=== PATIENT | female | born 1950 | race Caucasian/White ===

== ENCOUNTER 2016-11-10 15:43 | Observation (INO) | payer MEDICARE, OTHER ==
[2016-11-10] VITALS (8 sets, daily range): BP systolic 99–122; BP diastolic 62–75; PULSE 74–86; RESP 16–20; TEMP 97.9; O2SAT 96–99
[2016-11-10] MEDS ORDERED: FENO50TA PO (15:56)
[2016-11-10] MEDS ORDERED: SIMV40TA PO (15:56)
[2016-11-10] MEDS ORDERED: METO50TA PO (15:57)
--- NOTE | 2016-11-10 16:01 | PD ---
HPI Chief Complaint: Injury Time Seen by Provider: 15:52 Travel History International Travel<30 days: No Contact w/Intl Traveler<30days: No Traveled to known affect area: No History of Present Illness HPI 66-year-old female that presents to the ED for evaluation of injury. Patient came here by ambulance. Per patient she had tripped and fallen will cleaning her house. Per patient she fell into her left hand. She denies any head injury or loss of consciousness. Patient has obvious deformity at the left wrist. Patient was able to ambulate per ambulance. She states that her pain is 6 out of 10. She was put in a splint. She denies any fevers chills or sweats. Denies any other medical issues at this time. No blood thinner use. No back or neck pain. No hip pain. Able to move the fingers fully. Full range of motion. Patient does have obvious deformity to the wrist. No pain on the elbow. No pain anywhere else. No previous injuries to this area. PFSH Past Medical History High Cholesterol: Yes Hypertension: Yes Influenza Vaccination: Yes ?: Not Past Surgical History Other Surgery: Yes (SKIN CANCER) Social History Alcohol Use: Yes (WEEKENDS) Tobacco Use: Yes (1/2 PPD) Substance Use: No Allergies-Medications (Allergen,Severity, Reaction): Coded Allergies: No Known Allergies (Verified , 11/10/16) Reported Meds & Prescriptions Reported Meds & Active Scripts Active Reported Metoprolol Tartrate 50 Mg Tab 50 Mg PO DAILY Simvastatin 40 Mg Tab 40 Mg PO HS Tricor (Fenofibrate) 145 Mg Tab 145 Mg PO DAILY Takw with food. Review of Systems Except as stated in HPI: all other systems reviewed are Neg Physical Exam Narrative GENERAL: SKIN: Warm and dry. HEAD: Atraumatic. Normocephalic. EYES: Pupils equal and round. No scleral icterus. No injection or drainage. ENT: No nasal bleeding or discharge. Mucous membranes pink and moist. Tongue is midline. No uvula deviation. NECK: Trachea midline. No JVD. CARDIOVASCULAR: Regular rate and rhythm. RESPIRATORY: No accessory muscle use. Clear to auscultation. Breath sounds equal bilaterally. GASTROINTESTINAL: Abdomen soft, non-tender, nondistended. Hepatic and splenic margins not palpable. MUSCULOSKELETAL: Extremities without clubbing, cyanosis, or edema. No obvious deformities. Full range of motion of the upper and lower extremities bilaterally. With exception of the left wrist. Patient does have obvious deformity to the wrist. Patient was put on a n ambulance splint. Patient has good pulses. Full range of motion of the fingers. Appears to be neurovascular intact. Soft tissue swelling noted. Neurovascularly intact. 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 NEUROLOGICAL: Awake and alert. No obvious cranial nerve deficits. Motor grossly within normal limits. Five out of 5 muscle strength in the arms and legs. Normal speech. PSYCHIATRIC: Appropriate mood and affect; insight and judgment normal. Data Data Last Documented VS Vital Signs Date Time Temp Pulse Resp B/P (MAP) Pulse Ox O2 Delivery O2 Flow Rate FiO2 11/10/16 15:50 97.9 86 18 122/75 (91) 96 Orders Orders Wrist, Complete ([id number]) (11/10/16 ) Forearm (2vws) (11/10/16 ) Complete Blood Count With Diff (11/10/16 17:01) Basic Metabolic Panel (Bmp) (11/10/16 17:01) Prothrombin Time / Inr (Pt) (11/10/16 17:01) Act Partial Throm Time (Ptt) (11/10/16 17:01) Iv Access Insert/Monitor (11/10/16 17:01) Ecg Monitoring (11/10/16 17:01) Oximetry (11/10/16 17:01) Electrocardiogram (11/10/16 17:05) Chest, Single Ap (11/10/16 17:05) Propofol 200 Mg/20 Ml Inj (Diprivan 200 (11/10/16 17:15) Splint Or Brace Apply/Monitor (11/10/16 17:29) Admit Order (Ed Use Only) (11/10/16 17:31) [facility] Medical Decision Making Medical Screen Exam Complete: Yes Emergency Medical Condition: Yes Medical Record Reviewed: Yes Interpretation(s) Last Impressions Wrist X-Ray 11/10/16 0000 Signed Impressions: Service Date/Time: Thursday, November 10, 2016 16:10 - CONCLUSION: Impacted fracture distal radius as described above. Juan M Joshi MD FACR Radius/Ulna X-Ray 11/10/16 0000 Signed Impressions: Service Date/Time: Thursday, November 10, 2016 16:13 - CONCLUSION: Fracture dislocation distal radius.. uJan M Joshi MD FACR Differential Diagnosis Fracture versus sprain versus strain versus dislocation Narrative Course 66-year-old female that presents to the ED for evaluation of injury to his left wrist. Patient was properly examined and was found to have signs and symptoms consistent appears to be fracture. X-rays were ordered. Patient declined pain medication at this time. X-ray showed fractures. My attending Dr. Fuller evaluated the patient with me and agrees with plan. Case discussed with Lio GU for Dr. Santacruz who [facility] Nothing by mouth after midnight. Case discussed with Dr. Forrest who [facility] Lio did recommend that we put the patient under conscious sedation to try to reduce the fracture. This was discussed with my attending Dr. Fuller who agrees with this plan. Patient was moved to a medical bed for conscious sedation. Please refer to his note. Diagnosis Primary Impression: Wrist fracture, left Qualified Codes: S62.102A - Fracture of unspecified carpal bone, left wrist, initial encounter for closed fracture Admitting Information Admitting Physician Requests: Mateus Cardenas Nov 10, 2016 16:01
--- NOTE | 2016-11-10 16:29 | RADRPT ---
EXAM DATE/TIME: 11/10/2016 16:10 [facility] COMPARISON: No previous studies available for comparison. INDICATIONS : Left wrist pain; tripped and fell today. MEDICAL HISTORY : None. SURGICAL HISTORY : None. ENCOUNTER: Initial ACUITY: 1 day PAIN SCORE: 10/10 LOCATION: Left wrist. FINDINGS: There is an impacted fracture distal radius extending into the radiocarpal joint with ventral disloca tion of the carpus. The ulnar styloid is intact. CONCLUSION: Impacted fracture distal radius as described above. Juan M Joshi MD FACR on November 10, 2016 at 16:24 Board Certified Radiologist. This report was verified electronically.
--- NOTE | 2016-11-10 16:30 | RADRPT ---
EXAM DATE/TIME: 11/10/2016 16:13 [facility] COMPARISON: No previous studies available for comparison. INDICATIONS : Left forearm pain; tripped and fell today. MEDICAL HISTORY : None. SURGICAL HISTORY : None. ENCOUNTER: Initial ACUITY: 1 day PAIN SCORE: 10/10 LOCATION: Left forearm. FINDINGS: Fracture dislocation distal radius. The proximal radius and all are intact. CONCLUSION: Fracture dislocation distal radius.. Juan M Joshi MD FACR on November 10, 2016 at 16:28 Board Certified Radiologist. This report was verified electronically.
[2016-11-10] MEDS ORDERED: PROPOFOL 200 MG/20 ML AMP IV ONE ×2 (17:15→18:00)
--- NOTE | 2016-11-10 17:34 | PD ---
Physical Exam Date Seen by Provider: Nov 10, 2016 Time Seen by Provider: 17:27 Narrative The patient is a 66-year-old female who is initially evaluated by the mid-level provider. Please refer to the initial history, physical, diagnostic evaluation , and treatment modality plan. Data Data Last Documented VS Vital Signs Date Time Temp Pulse Resp B/P (MAP) Pulse Ox O2 Delivery O2 Flow Rate FiO2 11/10/16 15:50 97.9 86 18 122/75 (91) 96 Orders Orders Wrist, Complete ([id number]) (11/10/16 ) Forearm (2vws) (11/10/16 ) Complete Blood Count With Diff (11/10/16 17:01) Basic Metabolic Panel (Bmp) (11/10/16 17:01) Prothrombin Time / Inr (Pt) (11/10/16 17:01) Act Partial Throm Time (Ptt) (11/10/16 17:01) Iv Access Insert/Monitor (11/10/16 17:01) Ecg Monitoring (11/10/16 17:01) Oximetry (11/10/16 17:01) Electrocardiogram (11/10/16 17:05) Chest, Single Ap (11/10/16 17:05) Propofol 200 Mg/20 Ml Inj (Diprivan 200 (11/10/16 17:15) Splint Or Brace Apply/Monitor (11/10/16 17:29) Admit Order (Ed Use Only) (11/10/16 17:31) [facility] Medical Record Reviewed: Yes Supervised Visit with GRACE: Yes Interpretation(s) Vital Signs Date Time Temp Pulse Resp B/P (MAP) Pulse Ox O2 Delivery O2 Flow Rate FiO2 11/10/16 15:50 97.9 86 18 122/75 (91) 96 Last Impressions Wrist X-Ray 11/10/16 0000 Signed Impressions: Service Date/Time: Thursday, November 10, 2016 16:10 - CONCLUSION: Impacted fracture distal radius as described above. Juan M Joshi MD FACR Radius/Ulna X-Ray 11/10/16 0000 Signed Impressions: Service Date/Time: Thursday, November 10, 2016 16:13 - CONCLUSION: Fracture dislocation distal radius.. Juan M Joshi MD FACR Differential Diagnosis Differential diagnosis includes fracture, dislocation, sprain, strain, hematoma , mechanical fall. Narrative Course I, Dr. Fuller, have reviewed the advance practice practitioner's documentation and am in agreement, met with the patient face to face, made the diagnosis, and the medical decision making was done by me. *My assessment and Findings: The patient is a 66-year-old female who was initially evaluated by the mid-level provider. The patient was noted to have an impacted distal left radial fracture with angulation. The patient is right- hand dominant. The patient was neurovascularly intact. Mateus Rivera spoke with the orthopedic team who recommends reduction, splinting, and nothing by mouth after midnight for surgery tomorrow. The patient will be admitted to the medical team in [facility] for definitive operative management tomorrow. I had a discussion with the patient regarding the risk and benefits of conscious sedation. After discussion it was agreed the patient undergo conscious sedation. She was moved to a room with cardiac telemetry monitoring and continuous pulse oximetry monitoring. IV was established, labs are drawn and sent, and the patient was placed on oxygen via nasal cannula and end-tidal CO2. With respiratory therapy and nursing staff at bedside, as well as a a.m. T for splinting, the patient was sedated, the left wrist fracture was reduced and splinted, and post reduction x-rays were obtained. Postreduction x- ray reveals interval improvement of previous impacted fracture. Patient is able to wiggle the fingers on the left hand without difficulty and sensation was intact. Procedures Procedure Narrative The patient's left wrist fracture was reduced under conscious sedation. Dr. Reese performed conscious sedation while Mateus Rivera PA-C and myself reduced the patient's left wrist fracture. After reduction the patient was placed in a sugar tong splint, was neurovascularly intact afterwards. Postreduction x-ray was performed. The patient tolerated the procedure without difficulty. Physician Communication Physician Communication the patient will be admitted to the medical service with consultation orthopedics. The patient will be kept nothing by mouth after midnight. Diagnosis Primary Impression: Wrist fracture, left Qualified Codes: S62.102A - Fracture of unspecified carpal bone, left wrist, initial encounter for closed fracture Admitting Information Admitting Physician Requests: Admit Condition: Stable Milton Fuller MD Nov 10, 2016 17:34
[2016-11-10] MEDS ORDERED: NALOXONE HCL 0.4 MG/ML AMP IV PRN (17:45)
[2016-11-10] MEDS ORDERED: ACETAMINOPHEN/HYDROcodone 325 MG/7.5 MG TAB PO PRN (17:45)
[2016-11-10] MEDS ORDERED: SODIUM CHLORIDE 0.9% FLUSH 10 ML FLUSH IV FLUSH PRN (17:45)
[2016-11-10] MEDS ORDERED: BISACODYL 10 MG SUPP RECTAL PRN (17:45)
[2016-11-10] MEDS ORDERED: ONDANSETRON HCL 4 MG/2 ML VIAL IVP PRN (17:45)
[2016-11-10] MEDS ORDERED: SENNOSIDES 8.6 MG TAB PO PRN (17:45)
[2016-11-10] MEDS ORDERED: LACTULOSE SYRUP 20 GM/30 ML CUP PO PRN (17:45)
[2016-11-10] MEDS ORDERED: ACETAMINOPHEN 325 MG TAB PO PRN (17:45)
[2016-11-10] MEDS ORDERED: MORPHINE SULFATE 4 MG/ML INJ IV PRN (17:45)
[2016-11-10] MEDS ORDERED: ACETAMINOPHEN/HYDROcodone 325 MG/5 MG TAB PO PRN (17:45)
[2016-11-10] MEDS ORDERED: MAGNESIUM HYDROXIDE SUSP 30 ML CUP PO PRN (17:45)
[2016-11-10] MEDS ORDERED: SODIUM CHLOR 0.9% 1000 ML INJ 1,000 ML IV SCH (18:00)
[2016-11-10] MEDS: SODIUM CHLOR 0.9% 1000 ML INJ 1,000 ML IV SCH (18:04)
[2016-11-10 18:12] LABS: AUTOMATED NEUTROPHIL # 10.7 TH/MM3 (1.8-7.7); BASOPHIL # 0.3 TH/MM3 (0-0.2); BASOPHIL % 2.3 % (0.0-2.0); EOSINOPHIL # 0.2 TH/MM3 (0-0.4); EOSINOPHIL % 1.2 % (0.0-4.0); HEMATOCRIT 47.6 % (35.0-46.0); LYMPH % 14.1 % (9.0-44.0); LYMPHOCYTE # 1.9 TH/MM3 (1.0-4.8); MEAN CELL VOLUME 95.6 FL (80.0-100.0); MEAN CORPUSCULAR HEMOGLOBIN 31.6 PG (27.0-34.0); MEAN CORPUSCULAR HGB CONC 33.1 % (32.0-36.0); MONO % 2.9 % (0.0-8.0); NEUT % 79.5 % (16.0-70.0); PLATELET COUNT 310 TH/MM3 (150-450); RED BLOOD COUNT 4.98 MIL/MM3 (4.00-5.30); RED CELL DISTRIBUTION WIDTH 13.8 % (11.6-17.2); WHITE BLOOD COUNT 13.5 TH/MM3 (4.0-11.0)
--- NOTE | 2016-11-10 18:14 | RADRPT ---
EXAM DATE/TIME: 11/10/2016 17:54 [facility] COMPARISON: No previous studies available for comparison. INDICATIONS : Evaluate for pneumonia, pneumothorax, and communicable disease. Pre op for left wrist surgery tomorr ow. MEDICAL HISTORY : None. SURGICAL HISTORY : None. ENCOUNTER: Initial ACUITY: 1 day PAIN SCORE: 0/10 LOCATION: Bilateral chest FINDINGS: A single view of the chest demonstrates the lungs to be symmetrically aerated without evidence of mas s, infiltrate or effusion. The cardiomediastinal contours are unremarkable. Osseous structures are intact. CONCLUSION: No evidence of acute cardiopulmonary disease. Meño Squires MD on November 10, 2016 at 18:13 Board Certified Radiologist. This report was verified electronically.
[2016-11-10 18:16] LABS: HEMO FLAGS DIFF FINAL
[2016-11-10 18:23] LABS: PROTHROMBIN TIME - PATIENT 10.9 SEC (9.8-11.6)
--- NOTE | 2016-11-10 18:31 | PD ---
Data Data Last Documented VS Vital Signs Date Time Temp Pulse Resp B/P (MAP) Pulse Ox O2 Delivery O2 Flow Rate FiO2 11/10/16 15:50 97.9 86 18 122/75 (91) 96 Orders Orders Wrist, Complete ([id number]) (11/10/16 ) Forearm (2vws) (11/10/16 ) Complete Blood Count With Diff (11/10/16 17:01) Basic Metabolic Panel (Bmp) (11/10/16 17:01) Prothrombin Time / Inr (Pt) (11/10/16 17:) Act Partial Throm Time (Ptt) (11/10/16 17:) Iv Access Insert/Monitor (11/10/16 17:) Ecg Monitoring (11/10/16 17:) Oximetry (11/10/16 17:) Electrocardiogram (11/10/16 17:05) Chest, Single Ap (11/10/16 17:05) Propofol 200 Mg/20 Ml Inj (Diprivan 200 (11/10/16 17:15) Splint Or Brace Apply/Monitor (11/10/16 17:29) Admit Order (Ed Use Only) (11/10/16 17:31) MDM Supervised Visit with GRACE: No Narrative Course I was asked by my colleague Dr. Fuller to perform procedural sedation for closed reduction of left wrist fracture. See his note for further details. Procedures Procedure Narrative Procedural sedation: After the risks and benefits were discussed the following procedure was performed: MODERATE SEDATION: The patient was placed on a monitor tech and pulse oximetry. An ambu bag and suction was immediately available at bedside. The patient was monitored by the nurse. Oxygen saturation , heart rate and blood pressure were monitored. Procedural sedation was acheived using 90 mg of IV propofol. The patient was observed until awake and alert. Procedural Sedation time in attendance was 15 minutes. Diagnosis Primary Impression: Wrist fracture, left Qualified Codes: S62.102A - Fracture of unspecified carpal bone, left wrist, initial encounter for closed fracture Condition: Stable Faraz Reese MD Nov 10, 2016 18:31
--- NOTE | 2016-11-10 18:52 | RADRPT ---
EXAM DATE/TIME: 11/10/2016 18:34 [facility] COMPARISON: WRIST LEFT COMPLETE ([id number]), November 10, 2016, 16:10. INDICATIONS : Post reduction left wrist. MEDICAL HISTORY : None. SURGICAL HISTORY : None. ENCOUNTER: Initial ACUITY: 1 day PAIN SCORE: Non-responsive. LOCATION: Left wrist. FINDINGS: Two view examination of the left wrist demonstrates persistent fractures distal radius and ulnar styl oid. There is improved alignment. Extensive soft tissue swelling. CONCLUSION: Post reduction views demonstrates improved alignment. Mario Valencia MD on November 10, 2016 at 18:47 Board Certified Radiologist. This report was verified electronically.
[2016-11-10 19:04] LABS: POTASSIUM 3.6 MEQ/L (3.5-5.1)
[2016-11-10 19:07] LABS: BICARBONATE 24.8 MEQ/L (21.0-32.0)
[2016-11-10] MEDS: DOCUSATE SODIUM 50 MG/SENNA 8.6 MG TAB PO SCH (21:00)
[2016-11-10] MEDS ORDERED: PRAVASTATIN SOD 40 MG TAB PO SCH (21:00)
[2016-11-10] MEDS: SODIUM CHLORIDE 0.9% FLUSH 10 ML FLUSH IV FLUSH SCH (21:00)
[2016-11-11 00:40] VITALS: BP 118/62
[2016-11-11 04:22] VITALS: BP 138/75; PULSE 75; RESP 17; TEMP 97.6; O2SAT 97
[2016-11-11] MEDS: SODIUM CHLOR 0.9% 1000 ML INJ 1,000 ML IV SCH ×2 (05:09→13:34)
[2016-11-11] MEDS ORDERED: VANCOMYCIN HCL 1000 MG VIAL ONE (07:00)
[2016-11-11] MEDS ORDERED: ceFAZolin 2 GM PREMIX 50 ML ONE (07:01)
[2016-11-11] MEDS ORDERED: GENTAMICIN SULFATE 80 MG/2 ML VIAL ONE (07:01)
[2016-11-11] MEDS ORDERED: SODIUM CHLOR 0.9% 250 ML INJ 250 ML ONE (07:01)
[2016-11-11] MEDS ORDERED: FAMOTIDINE 20 MG/2 ML VIAL ONE (07:13)
[2016-11-11] MEDS ORDERED: ACETAMINOPHEN 1000 MG/100 ML 100 ML IV ONE (07:13)
[2016-11-11] MEDS ORDERED: HYDR-3288 PO (08:11)
--- NOTE | 2016-11-11 08:12 | PD.OP ---
cc: Shahab Santacruz MD Operative Report Date of Surgery: Nov 11, 2016 Preoperative Diagnosis: Intra-articular left distal radius fracture Postoperative Diagnosis: Procedure: Open reduction internal fixation left distal radius Anesthesia: Gen. Surgeon: Shahab Santacruz Bridge Maintainer(s): JASWINDER Beaver PA-C The surgical procedure was assisted by my physician ssn/ssbn assistant navigator. My P.A. presence was necessary throughout this case for the manipulation and positioning of the surgical extremity. My P.A. was assisting me throughout the duration of this procedure. The skill set of a physician ssn/ssbn assistant navigator was medically necessary to complete this procedure. During the surgical case the certified surgical technician was working at the back table and the physician ssn/ssbn assistant navigator was directly assisting me. Operation and Findings: Patient was seen and evaluated preoperatively and found to have a displaced left distal radius fracture. Informed consent was obtained after detailed discussion of risk and benefits including bleeding, infection, injury to arteries, nerves, and blood vessels, weakness and numbness of hand, and tendon rupture. Informed consent was obtained. Patient received IV antibiotics prior to incision. Timeout procedure was performed. Operative extremity was prepped with alcohol followed by Hibiclens and draped usual sterile fashion. A standard volar approach to the distal radius was utilized. A 3 inch incision was made over the FCR tendon. Tendon sheath was opened. Pronator quadratus was elevated up. The fracture site was now visualized. The fracture did have intra-articular extension. Traction was applied. The articular surface was reduced. Fracture fragments were manipulated to achieve excellent reduction. K wires were used to hold provisional fixation. Fluoroscopy confirmed appropriate alignment of fracture. A Synthes 2 column variable angle distal radius plate was selected. Plate was provisionally fixed to bone with K wires. 2.7 and 2.4 cortical screws were used to compress plate to bone. Fluoroscopy confirmed appropriate alignment of fracture with well-placed hardware. Multiple 2.4 locking screws were now placed distally. Screws were predrilled and measured for appropriate length. 2 additional screws were placed into the shaft. K wires were removed. Final fluoroscopy revealed excellent of fracture with well-placed hardware. The wound was thoroughly irrigated with sterile saline. Subcutaneous tissue was closed with 3-0 Vicryl and skin was closed with 3-0 nylon. Sterile dressings were applied with Xeroform, 4 x 4, soft roll , and a well padded volar splint. Patient was awakened and transferred to recovery room in stable condition Shahab Santacruz MD Nov 11, 2016 08:12
--- NOTE | 2016-11-11 08:14 | HHI.HP ---
HPI Service [facility] Primary Care Physician Fernanda Riley M.D. Admission Diagnosis acute left radial head fracture Diagnoses: (1) Wrist fracture, left Chief Complaint: Left wrist pain Travel History International Travel<30 Days: No Contact w/Intl Traveler <30 Da: No Traveled to Known Affected Are: No History of Present Illness Written by Shila Wilburn, acting as scribe for Dr. Kirkpatrick on 11/11/16 at 08:14. Ms. Vogel is a 66-year-old female patient with a known medical history of hypertension, hyperlipidemia and tobacco abuse who presented to the ED after falling at home and sustaining a left radial head fracture. Patient states as she was cleaning the house she tripped over something, fell to the ground and tried to catch herself on her left wrist. States she is in relatively good health. Denies loosing consciousness or hitting her head with the fall. Denies any recent illness including fever, chills, cough, shortness of breath, abdominal pain, nausea, vomiting, diarrhea or dysuria. Pain at the time of assessment was well-controlled. Patient eager to get home post operatively. Review of Systems Musculoskeletal: COMPLAINS OF: Joint pain (left wrist) Except as stated in HPI: all other systems reviewed are Neg Past Family Social History Past Medical History Hypertension Hyperlipidemia Past Surgical History Skin cancer removal Reported Medications Reported Meds & Active Scripts Active Senna Plus 8.6-50 mg (Sennosides-Docusate Sodium) 8.6 Mg-50 Mg Tab 1 Tab PO BID [place] (Hydrocodone-Acetaminophen) 7.5-325 mg Tab 1 Tab PO Q4H PRN 50 Days Reported Metoprolol Tartrate 50 Mg Tab 50 Mg PO DAILY Simvastatin 40 Mg Tab 40 Mg PO HS Tricor (Fenofibrate) 145 Mg Tab 145 Mg PO DAILY Takw with food. Allergies: Coded Allergies: No Known Allergies (Verified , 11/10/16) Active Ordered Medications Current Medications Medications (Trade) Dose Ordered Sig/Nancy Route Start Time Stop Time Status Last Admin Sodium Chloride 1,000 ml @ 100 mls/hr Q10H IV 11/10/16 17:34 9/12/17 05:09 (NS Flush) 2 ml UNSCH PRN IV FLUSH 11/10/16 17:45 (NS Flush) 2 ml BID IV FLUSH 11/10/16 21:00 11/11/16 10:01 (Zofran Inj) 4 mg Q6H PRN IVP 11/10/16 17:45 (Tylenol) 650 mg Q6H PRN PO 11/10/16 17:45 (Morphine Inj) 2 mg Q3H PRN IV 11/10/16 17:45 (Narcan Inj) 0.4 mg UNSCH PRN IV 11/10/16 17:45 (Kassie-Colace) 1 tab BID PO 11/10/16 21:00 (Milk Of Magnesia Liq) 30 ml Q12H PRN PO 11/10/16 17:45 (Senokot) 17.2 mg Q12H PRN PO 11/10/16 17:45 (Dulcolax Supp) 10 mg DAILY PRN RECTAL 11/10/16 17:45 (Lactulose Liq) 30 ml DAILY PRN PO 11/10/16 17:45 (Tricor) 145 mg DAILY PO 11/11/16 09:00 11/11/16 10:00 (Lopressor) 50 mg DAILY PO 11/11/16 09:00 11/11/16 10:00 (Pravachol) 80 mg HS PO 11/10/16 21:00 11/10/16 21:52 ([place] 7.5-325 Mg) 1 tab Q3H PRN PO 11/11/16 08:15 (Morphine Inj) 4 mg Q3H PRN IV PUSH 11/11/16 08:15 Family History Maternal medical history significant for hyperlipidemia and atrial fibrillation. Social History Patient admits to smoking 1/2 ppd cigarettes. Admits to occasional alcohol use. Denies any illicit drug use. Physical Exam Vital Signs Vital Signs Date Time Temp Pulse Resp B/P (MAP) Pulse Ox O2 Delivery O2 Flow Rate FiO2 11/11/16 04:22 97.6 75 17 138/75 (96) 97 11/11/16 00:42 20 11/11/16 00:40 76 20 118/62 (80) 97 11/10/16 21:48 80 20 103/73 (83) 99 11/10/16 21:11 74 20 99/73 (82) 98 11/10/16 20:13 81 20 122/70 (87) 98 11/10/16 19:30 77 20 98 11/10/16 19:28 80 20 109/62 (78) 97 2.00 11/10/16 18:55 78 16 103/65 (78) 98 Nasal Cannula 2.00 11/10/16 18:10 99 2.00 11/10/16 18:10 99 11/10/16 18:00 16 97 Nasal Cannula 2.00 11/10/16 18:00 16 11/10/16 15:50 97.9 86 18 122/75 (91) 96 Physical Exam GENERAL: This is a well-nourished, well-developed female patient, sitting up in chair in no apparent distress. SKIN: No rashes, ecchymoses or lesions. Warm and dry. Left upper arm extremity in sling and post operative dressings, clean/d/i. No numbness of tingling to extremity, sensation intact. Capillary refill < 3 seconds. HEENT: Atraumatic. Normocephalic. Pupils equal round and reactive. Extraocular motions intact. No scleral icterus. No injection or drainage. Nose without bleeding, purulent drainage or septal hematoma. Airway patent. NECK: Trachea midline. No JVD. Supple. CARDIOVASCULAR: Regular rate and rhythm without murmurs, gallops, or rubs. RESPIRATORY: Clear to auscultation. Breath sounds equal bilaterally. No wheezes , rales, or rhonchi. GASTROINTESTINAL: Abdomen soft, non-tender, nondistended. No guarding. MUSCULOSKELETAL: Extremities without clubbing, cyanosis, or edema. No joint tenderness, effusion, or edema noted. NEUROLOGICAL: Awake and alert. Motor and sensory grossly within normal limits. Five out of 5 muscle strength in all muscle groups. Normal speech. Laboratory Laboratory Tests Test 11/10/16 17:47 White Blood Count 13.5 Red Blood Count 4.98 Hemoglobin 15.7 Hematocrit 47.6 Mean Corpuscular Volume 95.6 Mean Corpuscular Hemoglobin 31.6 Mean Corpuscular Hemoglobin Concent 33.1 Red Cell Distribution Width 13.8 Platelet Count 310 Mean Platelet Volume 9.0 Neutrophils (%) (Auto) 79.5 Lymphocytes (%) (Auto) 14.1 Monocytes (%) (Auto) 2.9 Eosinophils (%) (Auto) 1.2 Basophils (%) (Auto) 2.3 Neutrophils # (Auto) 10.7 Lymphocytes # (Auto) 1.9 Monocytes # (Auto) 0.4 Eosinophils # (Auto) 0.2 Basophils # (Auto) 0.3 CBC Comment DIFF FINAL Differential Comment Prothrombin Time 10.9 Prothromb Time International Ratio 1.0 Activated Partial Thromboplast Time 23.0 Blood Urea Nitrogen 18 Creatinine 1.00 Random Glucose 86 Calcium Level 9.3 Sodium Level 140 Potassium Level 3.6 Chloride Level 106 Carbon Dioxide Level 24.8 Anion Gap 9 Estimat Glomerular Filtration Rate 55 Result Diagram: 11/10/16 1747 11/10/16 1747 Imaging Last Impressions Chest X-Ray 11/10/16 1705 Signed Impressions: Service Date/Time: Thursday, November 10, 2016 17:54 - CONCLUSION: No evidence of acute cardiopulmonary disease. Meño Squires MD Wrist X-Ray 11/10/16 0000 Signed Impressions: Service Date/Time: Thursday, November 10, 2016 18:34 - CONCLUSION: Post reduction views demonstrates improved alignment. Mario Valencia MD Radius/Ulna X-Ray 11/10/16 0000 Signed Impressions: Service Date/Time: Thursday, November 10, 2016 16:13 - CONCLUSION: Fracture dislocation distal radius.. Juan M Joshi MD FACR Caprini VTE Risk Assessment Caprini VTE Risk Assessment: Mod/High Risk (score >= 2) Caprini Risk Assessment Model Point Value = 1 Point Value = 2 Point Value = 3 Point Value = 5 Age 41-60 Minor surgery BMI > 25 kg/m2 Swollen legs Varicose veins or History of unexplained or recurrent spontaneous Oral contraceptives or hormone replacement Sepsis (< 1 month) Serious lung disease, including pneumonia (< 1 month) Abnormal pulmonary function Acute myocardial infarction Congestive heart failure (< 1 month) History of inflammatory bowel disease Medical patient at bed rest Age 61-74 Arthroscopic surgery Major open surgery (> 45 min) Laparoscopic surgery (> 45 min) Malignancy Confined to bed (> 72 hours) Immobilizing plaster cast Central venous access Age >= 75 History of VTE Family history of VTE Factor V Leiden Prothrombin 12193C Lupus anticoagulant Anticardiolipin antibodies Elevated serum homocysteine Heparin-induced thrombocytopenia Other congenital or acquired thrombophilia Stroke (< 1 month) Elective arthroplasty Hip, pelvis, or leg fracture Acute spinal cord injury (< 1 month) Prophylaxis Regimen Total Risk Factor Score Risk Level Prophylaxis Regimen 0-1 Low Early ambulation 2 Moderate Order ONE of the following: *Sequential Compression Device (SCD) *Heparin 5000 units SQ BID 3-4 Higher Order ONE of the following medications: *Heparin 5000 units SQ TID *Enoxaparin/Lovenox 40 mg SQ daily (WT < 150 kg, CrCl > 30 mL/min) *Enoxaparin/Lovenox 30 mg SQ daily (WT < 150 kg, CrCl > 10-29 mL/min) *Enoxaparin/Lovenox 30 mg SQ BID (WT < 150 kg, CrCl > 30 mL/min) AND/OR *Sequential Compression Device (SCD) 5 or more Highest Order ONE of the following medications: *Heparin 5000 units SQ TID (Preferred with Epidurals) *Enoxaparin/Lovenox 40 mg SQ daily (WT < 150 kg, CrCl > 30 mL/min) *Enoxaparin/Lovenox 30 mg SQ daily (WT < 150 kg, CrCl > 10-29 mL/min) *Enoxaparin/Lovenox 30 mg SQ BID (WT < 150 kg, CrCl > 30 mL/min) AND *Sequential Compression Device (SCD) Assessment and Plan Assessment and Plan Ms. Vogel is a 66-year-old female patient with a known medical history of hypertension, hyperlipidemia and tobacco abuse who presented to the ED after falling at home and sustaining a left radial head fracture. Inra-articular left distal radius fracture - Left wrist x-ray reviewed showing impacted fracture distal radius. - Management per orthopedic team. Status post open reduction internal fixation left distal radius. - Control pain, prescription written for [place] 7.5/32Discharge patient to home Hypertension, chronic: Continue home Metoprolol. BP stable during hospitalization. Hyperlipidemia, chronic: Continued home Fenofibrate and simvastatin. Tobacco abuse: Encouraged cessation. DVT Prophylaxis: Ambulation Discharge plan: Condition on discharge: Stable Healthy heart diet as tolerated Non weight bearing left upper extremity Rx written: Meds per med reconciliations [place] per ortho team, laxative, continue home meds. Follow-up with primary care physician. Discussed Condition With patient, nurse Physician Certification 2 Midnight Certification Type: Admission for Inpatient Services Order for Inpatient Services 0 Estimated LOS (days): 1 1 Post-Hospital Plan: Home Problem Qualifiers (1) Wrist fracture, left: Qualified Codes: S62.102A - Fracture of unspecified carpal bone, left wrist, initial encounter for closed fracture Shila Wilburn Nov 11, 2016 08:14 Sangita Kirkpatrick MD Nov 11, 2016 15:02
[2016-11-11] MEDS ORDERED: ACETAMINOPHEN/HYDROcodone 325 MG/7.5 MG TAB PO PRN (08:15)
[2016-11-11] MEDS ORDERED: MORPHINE SULFATE 4 MG/ML INJ IV PUSH PRN (08:15)
[2016-11-11] MEDS ORDERED: *RESP: ALBUTEROL 2.5 MG/3 ML NEB (PRN) PERIprocedural Use ONLY NEB ONE (08:58)
[2016-11-11] MEDS ORDERED: FENOFIBRATE 145 MG TAB PO SCH (09:00)
[2016-11-11] MEDS: DOCUSATE SODIUM 50 MG/SENNA 8.6 MG TAB PO SCH (09:00)
[2016-11-11] MEDS ORDERED: METOPROLOL TARTRATE 50 MG TAB PO SCH (09:00)
[2016-11-11] MEDS: SODIUM CHLORIDE 0.9% FLUSH 10 ML FLUSH IV FLUSH SCH (10:01)
[2016-11-11] MEDS ORDERED: PROPOFOL 200 MG/20 ML AMP IV ONE (12:00)
[2016-11-11] MEDS ORDERED: MIDAZOLAM HCL 2 MG/2 ML VIAL IV ONE (12:00)
[2016-11-11] MEDS ORDERED: NEOSTIGMINE 3 MG/3 ML SYR IV ONE (12:00)
[2016-11-11] MEDS ORDERED: ONDANSETRON HCL 4 MG/2 ML VIAL IV PUSH ONE (12:00)
[2016-11-11 12:24] VITALS: BP 148/85; PULSE 87; RESP 18; TEMP 98.1; O2SAT 95
[2016-11-11] MEDS ORDERED: SENN1TAB PO (13:21)
--- NOTE | 2016-11-11 13:21 | HHI.DCPOC ---
Discharge Care Plan Goals to Promote Your Health * To prevent worsening of your condition and complications * To maintain your health at the optimal level Directions to Meet Your Goals Take your medications as prescribed Follow your dietary instruction Follow activity as directed Keep your appointments as scheduled Take your immunizations and boosters as scheduled If your symptoms worsen call your PCP, if no PCP go to Urgent Care Center or Emergency Room Smoking is Dangerous to Your Health. Avoid second hand smoke Call the 24-hour hour crisis hotline for domestic abuse at Sangita Kirkpatrick MD Nov 11, 2016 13:20
--- NOTE | 2016-11-11 14:14 | RADRPT ---
EXAM DATE/TIME: 11/11/2016 08:03 [facility] COMPARISON: WRIST LEFT LIMITED (AP & LAT), November 10, 2016, 18:34. INDICATIONS : ORIF left wrist. MEDICAL HISTORY : None. SURGICAL HISTORY : None. ENCOUNTER: Subsequent ACUITY: 1 day PAIN SCORE: Non-responsive. LOCATION: Left wrist FINDINGS: ORIF of left distal radial fracture is noted with hardware in good position. The bones are well alig beti. CONCLUSION: Status-post ORIF of left distal radial fracture with hardware in good position and agusto juan well aligned. Linus Brock MD on November 11, 2016 at 12:45 Board Certified Radiologist. This report was verified electronically.
--- NOTE | 2016-11-11 21:05 | MB ---
cc: [facility] DATE OF ADMISSION 11/10/2016 DATE OF CONSULTATION 11/11/2016 REASON FOR CONSULTATION Intra-articular left distal radius fracture. CONSULTING PHYSICIAN Dr. Forrest HISTORY OF THE PRESENT ILLNESS Ami is a 66-year-old female. She had a fall. She was moving patio furniture when she tripped over the leg of a chair. She had immediate left wrist pain. She presented to the emergency room where x-rays revealed a displaced left distal radius fracture. She is currently awake and alert on the orthopedic floor. Her only complaint is her left wrist. Pain is worse with movement and is improved with rest. She denies dizziness, syncope or loss of consciousness. PAST MEDICAL HISTORY Illnesses: 1. Skin cancer. 2. Hypertension. 3. High cholesterol. ALLERGIES NONE. MEDICATIONS Include: 1. Metoprolol. 2. Simvastatin. 3. Tricor. PAST SURGICAL HISTORY Skin cancer excisions. SOCIAL HISTORY The patient smokes half-pack a day. She drinks alcohol on weekends. REVIEW OF SYSTEMS The patient denies headache, visual changes, neck pain, chest pain, shortness of breath, abdominal pain, nausea or vomiting or recent weight loss. She complains of left wrist pain. Pain is worse with movement. PHYSICAL EXAMINATION GENERAL: The patient is a pleasant 66-year-old female in no acute distress. She is awake and alert. She is alert and oriented times three. VITAL SIGNS: Temperature 97.6, pulse 75, respirations 17, blood pressure 138/75, O2 saturation is 97% on room air. HEAD: The patient is normocephalic. Pupils are equal. NECK: Soft, nontender. Trachea is midline. ABDOMEN: Soft, nontender, nondistended. EXTREMITIES: Examination of the left arm reveals no tenderness around her shoulder or elbow. She is diffusely tender around the wrist. She has mild swelling present. Skin is intact. She has good cap refill in all fingers. Sensation intact in all fingers. Examination of right arm reveals no pain with shoulder, elbow or wrist motion. Skin is intact. Radial pulses palpable. Sensation is intact. Examination of bilateral lower extremities show reveals no pain with hip, knee or ankle motion. Skin is intact. Dorsalis pedis pulses palpable. Sensation is intact. IMAGING X-rays of left wrist reveal a displaced intra-articular left distal radius fracture. IMPRESSION Displaced intra-articular left distal radius fracture. PLAN Treatment options were discussed with the patient. At this point I would recommend open reduction internal fixation of left distal radius. Risks of surgery include bleeding, infection, injury to arteries, nerves and blood vessels, nonunion, malunion, painful hardware, wrist stiffness, tendon rupture as well as medical complications including blood clot, stroke, heart attack and . All questions were answered. I will plan on surgery today. A mid-level provider in my office, nurse practitioner or PA, may see this patient on a follow-up basis and continue to implement the objective of this plan including: Starting or adjusting medications, injections of muscle, tendon, bursa or joints, cast application, orthotic or brace application, physical therapy, further radiographic studies including x-ray, MRI, CT, ultrasounds or bone scan, vascular studies, neurologic studies, or other specialist consultations, and proceeding with surgical management as appropriate. MD ORLANDO Cortes/YOLY /8:14 AM /8:48 PM
--- NOTE | 2016-11-12 22:08 | EKG ---
Date Performed: 11/11/2016 Time Performed: 07:03:26 PTAGE: 66 years EKG: Sinus arrhythmia. Poor R wave progression - probable normal variant Septal T wave changes a re nonspecific Borderline ECG NO PREVIOUS TRACING DOCTOR: Jayshree Mendez Interpretating Date/Time 11/12/2016 22:06:55
== END 2016-11-11 15:26 | disposition home or self-care (01) ==
LOC: PHEFT 15:43 → PHEDA 17:34 → NEPGCP 11-11 01:09
PROVIDERS: ADMIT Hospitalist; ATTEND Hospitalist
DX: S52.572A Other intraarticular fracture of lower end of left radius, initial encounter for closed fracture (principal); I10 Essential (primary) hypertension; E78.5 Hyperlipidemia, unspecified; F17.210 Nicotine dependence, cigarettes, uncomplicated; W01.0XXA Fall on same level from slipping, tripping and stumbling without subsequent striking against object, initial encounter; Y92.009 Unspecified place in unspecified non-institutional (private) residence as the place of occurrence of the external cause
CPT/HCPCS: 01830; 25605; 25609; 71010; 73090; 73100; 73110; 76000; 80048; 85025; 85610; 85730; 93005; 94664; 94770; 96360; 96361; 99155; 99285; C1713; G0378; J0131; J0690; J1580; J2250; J2405; J2710; J3010; J3370; J7030; J7050; J7613; 29125